=== PATIENT | female | born 1975 | race African-American/Black ===

== ENCOUNTER 2020-11-14 21:45 | Emergency (ER) | payer MEDICAID, OTHER, SELFPAY ==
[~2020-11-14] VITALS: Ht 162.6 cm; Wt 78.1 kg
[2020-11-14 22:04] VITALS: BP 107/73
== END 2020-11-15 00:34 | disposition home or self-care (01) ==
LOC: ED 23:59
DX: U07.1 COVID-19 (principal); J40 Bronchitis, not specified as acute or chronic; M79.10 Myalgia, unspecified site
CPT/HCPCS: 71045; 99284; U0003; U0005